=== PATIENT | female | born 1960 | race Caucasian/White ===

== ENCOUNTER 2017-08-15 06:21 | Day surgery (SDC) | payer BC ==
[~2017-08-15] VITALS: Ht 167.6 cm; Wt 70.3 kg
[~2017-08-15 06:21] MED LIST: ALENDRONATE70 MG PO; BAYER ASA325 MG PO; LIPITOR10 M1 PO; SINGULAIR10 MG PO; TYLENOL325 MG PO; ZITHROMAX500 MG PO
[2017-08-15 08:31] VITALS: BP 137/70
== END 2017-08-15 08:40 | disposition home or self-care (01) | DRG 951 ==
LOC: ENDO 06:21 → ORM 10:45
PROVIDERS: ATTEND Internal Medicine Gastroenterology
PROC: 0DJD8ZZ Inspection of Lower Intestinal Tract, Via Natural or Artificial Opening Endoscopic (ICD-10-PCS; principal; 2017-08-15)
DX: Z12.11 Encounter for screening for malignant neoplasm of colon (principal); K64.8 Other hemorrhoids; K57.30 Diverticulosis of large intestine without perforation or abscess without bleeding; K64.4 Residual hemorrhoidal skin tags; K21.9 Gastro-esophageal reflux disease without esophagitis; E78.00 Pure hypercholesterolemia, unspecified; Z80.0 Family history of malignant neoplasm of digestive organs